=== PATIENT | female | born 1965 | race Caucasian/White ===

== ENCOUNTER 2017-08-13 10:23 | Emergency (ER) | payer SELFPAY ==
[2017-08-13] MEDS ORDERED: Adacel (T-DAP) 0.5 ML VIAL ONE (10:38)
[2017-08-13 11:55] LABS: #Basophils 0.1 thou/uL (0.0-0.2); #Eosinphils 0.2 thou/uL (0.0-0.7); #Lymphocytes 1.5 thou/uL (1.20-3.40); #Monocytes 0.7 thou/uL (0.11-0.59); #Neutrophils 4.3 thou/uL (1.40-6.50); %Basophils 0.8 % (0.0-1.0); %Eosinophils 2.3 % (0.0-10.0); %Lymphocytes 22.4 % (21.0-51.0); %Monocytes 10.7 % (0.0-10.0); Hematocrit 44.9 % (36.0-47.0); Mean Platelet Volume 9.3 fL (7.4-10.4); Red Blood Cell (RBC) Count 4.46 mill/uL (4.20-5.40); White Blood Cell (WBC) Count 6.7 thou/uL (4.8-10.8)
[2017-08-13] MEDS ORDERED: Morphine 10 MG/ML VIAL ONE (12:01)
[2017-08-13] MEDS ORDERED: Ondansetron HCl/PF 4 MG/2 ML Vial ONE (12:01)
[2017-08-13] MEDS ORDERED: Clindamycin/D5W 900 mg/50 ml Premix Bag ONE (12:01)
--- NOTE | 2017-08-13 12:10 | RAD ---
THREE VIEW LEFT FOOT SERIES: INDICATIONS: Injury. FINDINGS: No radiopaque foreign body visualized. No discrete fracture. Mild degenerative change present. IMPRESSION: 1. No acute osseous abnormality of the left foot. 2. No radiopaque foreign body visualized. POS: [facility]
[2017-08-13 12:12] LABS: Anion Gap 18 mmol/L (10-20); BUN (Urea Nitrogen) 15 mg/dL (9.8-20.1); Calc. Creatinine Clearance 0 mL/min (70-130); Calcium 9.9 mg/dL (7.8-10.44); Carbon Dioxide 21 mmol/L (22-29); Chloride 101 mmol/L (98-107); Estimated GFR-MDRD 81
== END 2017-08-13 13:42 | disposition home or self-care (01) ==
LOC: ERS 10:23
DX: S91.332A Puncture wound without foreign body, left foot, initial encounter (principal); L03.116 Cellulitis of left lower limb; F17.210 Nicotine dependence, cigarettes, uncomplicated; Z23 Encounter for immunization; W45.0XXA Nail entering through skin, initial encounter
CPT/HCPCS: 36415; 80048; 85025; 85652; 86140; 87040; 90471; 90715; 96365; 96375; J2270; J2405; J3490